=== PATIENT | female | born 1975 | race Caucasian/White ===

== ENCOUNTER 2022-08-31 11:55 | Emergency (ER) | payer BC ==
[2022-08-31] MEDS ORDERED: LORazepam 1 MG Tab PO ONE (12:30)
[2022-08-31] MEDS ORDERED: Potassium Chloride 20 MEQ Tab.ER PO ONE (13:46)
== END 2022-08-31 14:03 | disposition home or self-care (01) ==
LOC: JD.ED 11:55
DX: F41.9 Anxiety disorder, unspecified (principal)
CPT/HCPCS: 36415; 71046; 80053; 84484; 85025; 85379; 93005; 99284; A9270; 93010